=== PATIENT | female | born 1990 | race Caucasian/White ===

== ENCOUNTER → 2016-10-24 | Outpatient (CLI) | payer OTHER ==
[2016-10-24 13:17] LABS: Basophils % (A) 1 %; CH 30.3; CHCM 33.6; Eosinophils # (A) 0.1 k/uL (0-0.7); Eosinophils % (A) 1 %; HCT 41.1 % (34.0-46.0); HDW 2.36; HGB 13.5 gm/dL (11.4-16.0); Luc # (Auto) 0.06; Luc % (Auto) 1; Lymphocytes # (A) 1.7 k/uL (1.0-4.8); Lymphocytes % (A) 32 %; MCH 29.8 pg (25.0-35.0); MCHC 32.9 g/dL (31.0-37.0); MCV 90.7 fL (80.0-100.0); Mean Platelet Volume 8.3; Monocytes # (A) 0.3 k/uL (0-1.0); Monocytes % (A) 5 %; Neutrophils # (A) 3.2 k/uL (1.3-7.7); Neutrophils % (A) 61 %; RBC 4.53 m/uL (3.80-5.40); RDW 12.1 % (11.5-15.5); WBC 5.3 k/uL (3.8-10.6); WBC (Perox) 5.69
== END | disposition home or self-care (01) ==
LOC: LABPAT 12:20
PROVIDERS: ATTEND Obstetrics & Gynecology
DX: Z01.812 Encounter for preprocedural laboratory examination (principal)
CPT/HCPCS: 85025

== ENCOUNTER 2016-10-31 07:18 | Day surgery (SDC) | payer OTHER ==
[2016-10-25 15:11] VITALS: BMI 25.7
[~2016-10-31 07:18] MED LIST: DEXAMETHASONE SOD PHOSPHATE 10 MG/ML 1 ML VIAL IV ONE; HYDROmorphone 1 MG/ML 1 ML SYRINGE IVP PRN; LACTATED RINGERS 1,000 ML IV SCH; LIDOCAINE 1% 20 ML VIAL (10MG/ML) FOR IV START INTRADERMA PRN; MIDAZOLAM 2 MG/2 ML VIAL IV PRN; ONDANSETRON 4 MG/2 ML VIAL IVP ONE; Pre Op ABX Message 1 EACH MISC MISCELLANE ONE; SCOPOLAMINE 1.5MG/72HR PATCH TRANSDERM ONE
--- NOTE | 2016-10-31 07:42 | P.HPOB ---
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 She is scheduled for a LEEP colposcopy due to same risks/benefits alternatives were discussed with patient in detail and all questions were answered for her prior to proceeding to the operating room trying to minimal biopsies clear the disease process. She was explained she should not get for at least medical months following the LEEP procedure and that could potentially make it more difficult for her to get or keep the but due to the true precancerous nature of this disease process a LEEP has been scheduled. Past Medical History Past Medical History: Asthma Additional Past Medical History / Comment(s): Activity induced asthma. History of Any Multi-Drug Resistant Organisms: None Reported Past Surgical History: No Surgical Hx Reported Additional Past Anesthesia/Blood Transfusion Reaction / Comment(s): Has never had anesthesia, no family hx of anesthesia problems. Past Psychological History: Anxiety Smoking Status: Never smoker Past Alcohol Use History: None Reported Past Drug Use History: None Reported - Past Family History Mother Family Medical History: No Reported History Medications and Allergies Home Medications Medication Instructions Recorded Confirmed Type ALPRAZolam [Xanax] 0.5 mg PO DAILY PRN 10/25/16 10/25/16 History Albuterol Inhaler(Unknown Dose) 1 puff INHALATION PRN 10/25/16 History Levonorgestrel-Ethin Estradiol 1 tab PO DAILY 10/25/16 10/25/16 History [Lutera-28 Tablet] Allergies Allergy/AdvReac Type Severity Reaction Status Date / Time No Known Allergies Allergy Verified 10/25/16 15:00 Exam Osteopathic Statement: *. No significant issues noted on an osteopathic structural exam other than those noted in the History and Physical/Consult. - Vital Signs Vital signs: Vital Signs Temp Pulse Resp BP Pulse Ox 10/31/16 07:26 97.9 F 86 16 128/84 99 - OBG Physical Exam Breast: both: normal (no masses) Abdomen: bowel sounds normal, no diffuse tenderness, no bruit present, no guarding noted, no hepatomegaly, no splenomegaly, no mass Vulva: both: normal Vagina: normal moisture, no discharge Cervix: no lesion, no discharge Uterus: normal size, normal contour Adnexa: both: normal Anus/Rectum: normal perianal skin, no rectal mass, no hemorrhoids, heme negative
[2016-10-31] MEDS ORDERED: KETOROLAC 30 MG/ML 1 ML VIAL ONE (07:52)
[2016-10-31] MEDS ORDERED: PROPOFOL 10 MG/ML 20 ML VIAL IV ONE (07:52)
[2016-10-31] MEDS ORDERED: MIDAZOLAM 2 MG/2 ML VIAL ONE (07:52)
[2016-10-31] MEDS ORDERED: LIDOCAINE 1% INJ 10MG/ML (20 ML MDV) ONE (07:52)
[2016-10-31] MEDS ORDERED: fentaNYL (PF) 50 MCG/ML 2 ML AMP ONE (07:52)
[2016-10-31] MEDS ORDERED: IODINE/POTASS IOD (LUGOLS) BTL TOPICAL ONE (08:05)
--- NOTE | 2016-10-31 08:16 | P.OP ---
Date of Procedure: 10/31/16 Preoperative Diagnosis: NAZANIN III Postoperative Diagnosis: same Procedure(s) Performed: LEEP with colposcopy Anesthesia: NAPOLEON Surgeon: Rosales Gaviria Estimated Blood Loss (ml): 1 Pathology: other (Ectocervix) Condition: stable Disposition: same day Operative Findings: Tissue diagnosis pending Description of Procedure: Patient was taken to the operating suite where a general anesthetic was found to be adequate. She was prepped and draped in the normal sterile fashion placed in dorsal lithotomy position. Initially a coated speculum was inserted in the vagina and the ectocervix was covered with Lugol solution solution. SCOPE was then used to identify dysplastic areas once this was accomplished using a 2 cm loop and ectocervical portion with: Into the cervix was obtained. Once this was collected it was marked 12:00 sent to pathology. Ball-tipped cautery was then used to obtain excellent hemostasis and cauterize and destroy any potentially remaining dysplastic tissue. Once this was completed sponge, lap, needle counts were all correct and patient was taken to the recovery room in stable and satisfactory condition. Plan - Discharge Summary New Discharge Prescriptions: Acetaminophen-Codeine 300-30mg [Tylenol #3] 1 tab PO Q4H PRN #30 tablet PRN Reason: Pain Discharge Medication List ALPRAZolam [Xanax] 0.5 mg PO DAILY PRN 10/25/16 [History] Albuterol Inhaler(Unknown Dose) 1 puff INHALATION PRN 10/25/16 [History] Levonorgestrel-Ethin Estradiol [Lutera-28 Tablet] 1 tab PO DAILY 10/25/16 [ History] Acetaminophen-Codeine 300-30mg [Tylenol #3] 1 tab PO Q4H PRN #30 tablet [Rx] Follow up Appointment(s)/Referral(s): Rosales Gaviria DO [Doctor of Osteopathic Medicine] - 2 Weeks Activity/Diet/Wound Care/Special Instructions: no heavy lifting, limit stairs and driving for the next few days, pelvic rest. call for any high tempratures, heavy bleeding, or severe pain Discharge Disposition: HOME SELF-CARE
[2016-10-31 08:29] VITALS: TEMP 97.5
[2016-10-31 08:39] VITALS: RESP 18
[2016-10-31 09:46] VITALS: BP 109/65; PULSE 63
== END 2016-10-31 10:10 | disposition home or self-care (01) ==
LOC: OR 07:18
PROVIDERS: ATTEND Obstetrics & Gynecology
DX: D06.0 Carcinoma in situ of endocervix (principal); F41.9 Anxiety disorder, unspecified; Z79.3 Long term (current) use of hormonal contraceptives; Z79.899 Other long term (current) drug therapy; J45.909 Unspecified asthma, uncomplicated
CPT/HCPCS: 57460; 81025; 88342; 88307; 88341; J2250; J1100; J2405; J2001; J3010; J1885; J2704